=== PATIENT | female | born 1975 | race Caucasian/White ===

== ENCOUNTER 2018-02-12 17:26 | Emergency (ER) | payer OTHER ==
[~2018-02-12] VITALS: Ht 160 cm; Wt 128.8 kg
[~2018-02-12 17:26] MED LIST: BUPROPION HYDR300 M1 PO; GABAPENTIN300 MG PO; GLUMETZA1000 MG PO; SPIRONOLACTONE50 MG PO; VITAMIN D50000 IU PO
[2018-02-12 18:50] LABS: ABSOLUTE BASOPHIL COUNT 0 /CUMM (0.0-0.2); ABSOLUTE EOSINOPHIL COUNT 1.6 /CUMM (0.0-0.7); ABSOLUTE GRANULOCYTE CT 6.2 /CUMM (1.4-6.5); ABSOLUTE MONOCYTE COUNT 0.6 /CUMM (0.10-0.60); BASOPHIL % 0.4 % (0.0-2.0); EOSINOPHIL % 15.6 % (0-5); GRANULOCYTE % 59.2 % (42.2-75.2); HEMATOCRIT 43.5 % (37-47); MEAN CORPUSCULAR HGB 30.8 PG (27.0-31.0); MEAN CORPUSCULAR HGB CONC 33.5 G/DL (33.0-37.0); MEAN PLATELET VOLUME 7.9 FL (7.4-10.4); PLATELET COUNT 308 /CUMM (130-400); RBC DISTRIBUTION WIDTH 13.6 % (11.5-14.5); RED BLOOD CELL CT 4.73 /CUMM (4.20-5.40); WHITE BLOOD CELL COUNT 10.4 /CUMM (4.8-10.8)
--- NOTE | 2018-02-12 19:01 | ED GENERAL ADULT ---
History of Present Illness General Chief Complaint: Dyspnea (COPD, CHF, Other) Stated Complaint: SIB WALK-IN FOR SOB Source: patient, family Exam Limitations: no limitations Vital Signs & Intake/Output Vital Signs & Intake/Output Vital Signs Date Time Temp Pulse Resp B/P B/P Pulse O2 O2 Flow FiO2 Mean Ox Delivery Rate 02/12 2123 98.8 80 18 126/60 97 Room Air 02/12 2038 Room Air 02/12 2014 98.2 85 20 143/69 97 Room Air 02/12 1802 97.7 83 22 146/99 99 Room Air Allergies Coded Allergies: No Known Allergies (02/12/18) Reconcile Medications Bupropion Hydrochloride (Bupropion Hydrochloride XL) 300 MG T24 1 TAB PO DAILY DEPRESSION (Reported) ERGOCALCIFEROL (VITAMIN D2) (Vitamin D2) 50,000 UNIT CAPSULE 50,000 IU PO QW VITAMIN D SUPPLEMENT (Reported) Gabapentin 300 MG CAPSULE 1 CAP PO BID FIBROMAYLGA (Reported) METFORMIN HCL (Glumetza) 1,000 MG [id number] 1 TAB PO BID ENDOCRIN (Reported) Spironolactone 50 MG TABLET 1 TAB PO BID THYROID (Reported) Triage Note: TRIAGE: PT TO ER, SENT BY WALK IN CLINIC FOR CONCERNS OF BLOOD CLOT. STATES HAS HAD "HARD TIME CATCHING" HER BREATH X 1 WK, WORSE SINCE YESTERDAY. TOOK XANAX FROM [facility] WITH SOME RELIEF NOTED. DENIES ANY PAIN BUT DESCRIBES CHEST TIGHTNESS AND STATES WHEN SHE BENT DOWN IT FELT "LIKE SOMEBODY PUNCHED ME". HAS ALSO HAD "A LITTLE BIT OF COUGHING" WHICH HAS BEEN NON PRODUCTIVE. BREANNA VELASQUEZ AT TRIAGE FOR EVAL. Triage Nurses Notes Reviewed? yes Onset: Abrupt Duration: hour(s): Timing: single episode today Injury Environment: home Associated Symptoms: chest pain : No Patient currently breastfeeds: No HPI: Patient is a 42 year old female with a PMH of thyroid nodule, DM/metabolic syndrome?, fibromyalgia, anxiety, migraines is sent in to us from a walk in clinic for chest tightness and shortness of breath. She states that it began a week ago and is located in the middle of her chest. The tightness is exaggerated when she attempts to take a deep breath. She at first thought it was anxiety so she took one of her old Xanax pills allowed her to sleep. However at about 12:30 AM she woke again with the same chest tightness and shortness of breath. The patient was on Xanax and Wellbutrin 2 years ago and stopped because she had no time for follow-up with her doctor. The patient also noticed some mild nonproductive cough. She states that she has never had symptoms like this before. The patient states that she has no shortness of breath on exertion and doesn't know if the symptoms are positional as she didn't attempt to change position when the tightness started. The patient denies fever , nausea, vomiting, diarrhea, constipation, urinary symptoms, abdominal pain, lower extremity edema or pain in the lower extremities. The patient states that she's had floaters for a while that have been worked up with no cause found. The patient states that she does not sleep flat since her 8 years ago. She can't say if she has any shortness of breath or reflux symptoms when she lies flat. The patient states that she has been on control since June. She states that she sometimes gets hot flashes. She smoked 20 years ago for 7 years 1 pack per day. She has no history of cancer personally or in the family. She has no family or personal history of any clotting disorders. 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 The patient states that she is on spironolactone and to diabetes drugs but does not have diabetes she states that these drugs are for her thyroid. (Radha NORTH,Pushpa) Past History Travel History Traveled to [place] past 21 day No Medical History Any Pertinent Medical History? see below for history Neurological: NONE EENT: NONE Cardiovascular: NONE Respiratory: NONE Gastrointestinal: umbilical hernia Hepatic: NONE Renal: NONE Musculoskeletal: FIBROMYALGIA Psychiatric: anxiety Endocrine: hypothyroidism, NODULE ON THYROID Blood Disorders: NONE Cancer(s): NONE OFFICE MESSENGER/Reproductive: NONE Psychosocial History What is your primary language Wallisian Tobacco Use: Quit >30 days ago ETOH Use: occasional use Illicit Drug Use: denies illicit drug use Family History Family History, If Any: SON FHx: asthma DAUGHTER FHx: asthma Hx Contributory? Yes (Pushpa Garcia MD) Surgical History Surgical History: non-contributory (Iliana NORTH,Rock Pink) Review of Systems Review of Systems Constitutional: Reports: no symptoms. EENTM: Reports: no symptoms. Respiratory: Reports: see HPI, cough, short of breath. Cardiovascular: Reports: chest pain, edema. GI: Reports: no symptoms. Genitourinary: Reports: no symptoms. Musculoskeletal: Reports: muscle pain, muscle stiffness. Skin: Reports: no symptoms. Neurological/Psychological: Reports: no symptoms. Hematologic/Endocrine: Reports: no symptoms. Immunologic/Allergic: Reports: no symptoms. (Radha NORTH,Pushpa) Review of Systems All Other Systems: Reviewed and Negative (Iliana NORTH,Rock Pink) Physical Exam Physical Exam General Appearance: no apparent distress, alert, awake, anxious, obese Head: atraumatic, normal appearance Eyes: Bilateral: normal appearance, PERRL, EOMI. Ears, Nose, Throat: normal pharynx, normal ENT inspection Neck: normal inspection, supple, full range of motion Respiratory: normal breath sounds, chest non-tender, no respiratory distress Cardiovascular: regular rate/rhythm Gastrointestinal: normal bowel sounds, soft, non-tender Back: normal inspection, normal range of motion Extremities: normal inspection, normal capillary refill, pedal edema Neurologic/Psych: no motor/sensory deficits, awake, alert, oriented x 3 Skin: intact, normal color, warm/dry Core Measures ACS in differential dx? Yes CVA/TIA Diagnosis: No Sepsis Present: No Sepsis Focused Exam Completed? Yes (Radha NORTH,Pushpa) Progress Differential Diagnoses I considered the following diagnoses in my evaluation of the patient: Pulmonary embolism, ACS, asthma, GERD, panic disorder, costochondritis, pericarditis, pleuritis, pneumonia, pneumothorax, pancreatitis, gallbladder attack. Plan of Care: Orders Procedure Date/time Status Add-on Test (ER Only) 02/12 1855 Active EKG 02/12 185 Active TROPONIN LEVEL 02/12 181 Complete HUMAN BETA HCG SCREEN 02/12 1807 Complete D-DIMER 02/12 1807 Complete COMPREHENSIVE METABOLIC PANEL 02/12 1807 Complete CBC WITHOUT DIFFERENTIAL 02/12 1807 Complete Laboratory Tests 02/12/181815: Anion Gap 12, Estimated GFR > 60, BUN/Creatinine Ratio 15.6, Glucose 84, Calcium 10.0, Total Bilirubin 0.6, AST 17, ALT 25, Alkaline Phosphatase 67, Troponin I < 0.01, Total Protein 7.5, Albumin 4.2, Globulin 3.3, Albumin/Globulin Ratio 1.3, Total Beta HCG NEGATIVE, D-Dimer High Sensitivty 244 H, CBC w Diff NO MAN DIFF REQ, RBC 4.73, MCV 92.0, MCH 30.8, MCHC 33.5, RDW 13.6, MPV 7.9, Gran % 59.2, Lymphocytes % 19.1 L, Monocytes % 5.7, Eosinophils % 15.6 H, Basophils % 0.4, Absolute Granulocytes 6.2, Absolute Lymphocytes 2.0, Absolute Monocytes 0.6, Absolute Eosinophils 1.6, Absolute Basophils 0 Patient is a middle-aged obese female with a one-week history of chest tightness and difficulty breathing. She was sent in by urgent care for concerns of blood clot. Patient does have a history of control and does have fairly sedentary job and lifestyle. PE is more likely than any other diagnosis as well. Wells score is 7.5 and she is PERC positive. Patient denies any history of gastric reflux disease, is not a drinker, has no fever or productive cough. No chest tenderness on palpation. Her vitals are positive for hypertension 146/ 99. She denies any history of hypertension. Her EKG is normal sinus rhythm at rate of 81. No evidence of right heart strain. -CBC -CMP -D-dimer- negative so will do CTA Initial ED EKG: normal axis, none, normal intervals, normal p-waves, normal QRS complex Prior EKG: unchanged (Pushpa Garcia MD) Differential Diagnoses I considered the following diagnoses in my evaluation of the patient: Diagnostic Imaging: Viewed by Me: CT Scan. Discussed w/RAD: CT Scan. Radiology Impression: NO PE (Iliana NORTH,Rock Pink) Departure Departure Disposition: HOME OR SELF CARE Condition: Stable Clinical Impression Primary Impression: Chest tightness Referrals: Cielo NORTH,George Murdock MD,Radha Royal (PCP/Family) Departure Forms: Customer Survey General Discharge Information (Pushpa Garcia MD) Resident Co-Sign Statement Statement: ED Attending supervision documentation- [X] I saw and evaluated the patient. I have also reviewed all the pertinent lab results and diagnostic results. I agree with the findings and the plan of care as documented in the Resident's documentation. [X] I have reviewed the ED Record and agree with the Resident's documentation. [] Additions or exceptions (if any) to the Resident's note and plan are summarized below: [] (Rock Barrientos MD) Critical Care Note Critical Care Note Critical Care Time: non-applicable (Rock Barrientos MD)
--- NOTE | 2018-02-12 20:50 | CT SCAN REPORT ---
EXAMINATION: CT ANGIOGRAM OF THE CHEST WITH AND WITHOUT CONTRAST (CT PULMONARY ANGIOGRAM FOR PE) CLINICAL INFORMATION: Reason for Study:
Presumptive Dx: PE
Signs Symptoms: CHEST TIGHTNESS AND SHORTNESS OF BREATH
COMPARISON: Abdominal CT dated 06/25/2015 TECHNIQUE: Prior to contrast administration, noncontrast localization images were obtained. Subsequently, multidetector volumetric imaging was performed from the thoracic inlet to below the diaphragms following the administration of 80 mL Omnipaque 350 intravenous contrast. No contrast reaction reported. Sagittal, coronal, and MIP oblique sagittal reformatted images were obtained on the CT workstation, uploaded to PACS, and reviewed. There is no filling defect to suggest a pulmonary embolism. Centrally there is a lesion in the anterior mediastinum superiorly. This may well be thyroid in origin. Measures 2.8 x 2.8 cm. Ultrasound would be recommended. There may be a peripheral calcification. Differential would include a lymph node. Otherwise no evidence for adenopathy centrally. Imaging lung enriquez. Right lung; Once again lower lobe there is an area of soft tissue change this is similar to previous. There is been no significant change here. Some peripheral calcification is noted. No significant infiltrate or effusion the right lung. Left lung; Opacity in the left left lower lobe. Image 27. Measures 7 mm. I would only recommend follow-up here. This has a somewhat groundglass appearance. No significant infiltrate or effusion. Some minimal change in the lingula. Small nodule here. Measures 4 mm. Image 43. Review of bone windows shows a sclerotic density in T6 of uncertain etiology. Measures 1.8 cm. Otherwise degenerative changes are noted here. No compression injury. IMPRESSION: There is no filling defect to suggest a pulmonary embolism. No significant infiltrate or effusion. Stable appearing lesion at the right medial lung base compared to 2015 CT the abdomen. Anterior superior mediastinal mass. I suspect this may well be thyroid in origin. Ultrasound recommended to further evaluate. 2 nodules are seen on the left. Largest 7 mm. Follow-up noncontrast low-dose scan recommended in 6 months. Sclerotic lesion at T6 of uncertain etiology. No other suspicious bony finding. Correlate clinically. Bone scan if indicated
[2018-02-12 21:23] VITALS: BP 126/60
== END 2018-02-12 21:28 ==
LOC: ERH 17:26
PROVIDERS: Physician Assistant Medical
DX: R07.89 Other chest pain (principal)
CPT/HCPCS: 93005; 93010